=== PATIENT | male | born 2000 | race Two or more races ===

== ENCOUNTER 2021-09-16 08:36 | Emergency (ER) | payer MEDICAID ==
[~2021-09-16] VITALS: Ht 175.3 cm; Wt 110.0 kg
[2021-09-16] MEDS ORDERED: DOXY100T2 MT (11:24)
[2021-09-16] MEDS ORDERED: P20 MT (11:24)
[2021-09-16] MEDS ORDERED: ALBU6.7H9 INH (11:24)
[2021-09-16 12:28] VITALS: BP 126/79
== END 2021-09-16 12:53 | disposition home or self-care (01) ==
LOC: ER 08:54
DX: J18.9 Pneumonia, unspecified organism (principal); Z20.822 Contact with and (suspected) exposure to COVID-19; R03.0 Elevated blood-pressure reading, without diagnosis of hypertension; J40 Bronchitis, not specified as acute or chronic
CPT/HCPCS: 71045; 87426; 99284